=== PATIENT | female | born 1985 | race African-American/Black ===

== ENCOUNTER 2021-09-14 08:01 | Outpatient (REF) | payer BC, SELFPAY ==
[2021-09-14 08:14] LABS: MANUAL DIFF FLAG NO
[2021-09-14 08:39] LABS: Basophils Percent Auto 0.8 % (0-2); Eosinophils Absolute Auto 0.4 X10*3/uL (0.0-0.4); Eosinophils Percent Auto 6.7 % (0-4); Hematocrit 40.2 % (37.0-47.0); Imm Gran Abs Auto 0.01 X10*3/uL (0.00-0.03); Imm Gran Pct Auto 0.2 % (0.0-0.4); Lymphocytes Absolute Auto 1.5 X10*3/uL (1.2-4.9); Lymphocytes Percent Auto 28.4 % (20-40); Mean Corpuscular HGB Conc 32.3 g/dl (31.0-35.0); Mean Corpuscular Volume 83.4 fL (80.0-98.0); Mean Platelet Volume 10.3 fL (9.4-12.3); Monocytes Absolute Auto 0.5 X10*3/uL (0.1-1.2); Monocytes Percent Auto 10.1 % (2-11); Neutrophils Absolute Auto 2.8 x10*3/uL (2.0-8.3); Neutrophils Percent Auto 53.8 % (45-73); Platelet Count 400 X10*3/uL (160-400); Red Blood Count 4.82 X10*6/uL (4.20-5.50); Red Cell Distribution Width 13.4 % (11.0-16.0); White Blood Count 5.2 X10*3/uL (4.8-10.8)
[2021-09-14 09:24] LABS: Alanine Aminotransferase 20 U/L (0-31); Albumin Level 4.3 g/dL (3.5-5.0); Alkaline Phosphatase 45 U/L (39-117); Anion Gap 11 (12-20); Aspartate Amino Transferase 23 U/L (5-31); Bilirubin Total 1.1 mg/dL (0.0-1.0); Blood Urea Nitrogen 8 mg/dL (9-16); Calcium 10.4 mg/dL (8.4-10.2); Carbon Dioxide 26 mmol/L (22-29); Chloride 105 mmol/L (96-108); Cholesterol 177 mg/dL; Estimated Glomerular Filt Rate > 60; Glucose Fasting 92 mg/dL (60-99); HDL Cholesterol 55 mg/dL; LDL Cholesterol Calculated 105 mg/dl; Potassium 4.2 mmol/L (3.3-5.1); Sodium 138 mmol/L (135-145); Total Protein 7.4 g/dL (6.5-8.0); Triglycerides 88 mg/dL
== END 2021-09-14 08:02 | disposition home or self-care (01) ==
LOC: HO.LAB 08:01
PROVIDERS: PCP Nurse Practitioner Family; Visit Provider Nurse Practitioner Family
DX: I10 Essential (primary) hypertension (principal); E78.00 Pure hypercholesterolemia, unspecified; Z76.89 Persons encountering health services in other specified circumstances
CPT/HCPCS: 36415; 80053; 80061; 84443; 85025

== ENCOUNTER 2024-11-23 19:38 | Emergency (ER) | payer OTHER, SELFPAY ==
--- NOTE | ~2024-11-23 | XR_ITS ---
CLINICAL HISTORY: pain Left shoulder, 3 views COMPARISON: None provided FINDINGS: No acute fracture. No dislocation. Unremarkable soft tissues. IMPRESSION: No acute findings. This document has been electronically signed by: Florin Sahu MD on 11/23/2024 21:51:41
[2024-11-23 20:15] VITALS: BP 125/77; BP 130/89; PULSE 70; PULSE 84; RESP 16; TEMP 36.6; O2SAT 98; BMI 27.4
--- NOTE | 2024-11-23 20:33 | ED_ITS ---
HPI - Extremity Problem General Chief complaint: Extremity Injury, Upper Stated complaint: L Shoulder pain Time Seen by Provider: 11/23/24 20:18 History of Present Illness HPI Narrative: Patient is a 39-year-old female was playing basketball. When she raised her hand for lay up she heard a pop in her left shoulder. Complaining of pain localized to that area. No history of the same. No fever no chills no chest pain or shortness of breath no diaphoresis. No leg swelling. Not on blood thinners. Patient from home. Related Data Previous Rx's ?Medication ?Instructions ?Recorded cetirizine 10 mg tablet 10 mg PO DAILY #90 tabs 08/17 06/08 Allergies Allergy/AdvReac Type Severity Reaction Status Date / Time shellfish derived Allergy Intermediate Swelling Verified 11/23/24 20:20 Review of Systems Review of Systems: Positive pain to the left shoulder Yes all other systems are reviewed and are negative [facility] Past Medical History Attestation statement: The following information was validated with the patient. Medical History Physical exam Surgical History No pertinent past surgical history Family History Family History Mother No problems noted. Father No problems noted. Other Mental health disorder Social History Social History Housing: House Alcohol intake: current Alcohol intake frequency: holidays/special occasions only Patient Tobacco Use Status: Never used Tobacco e-Cigarette/Vaping Use: Never Used Second Hand Smoke Exposure: No Advance Directives: No Advance Directives Information Provided: No Do you have a plan to hurt others: No Plan service: Yes Current occupational status: employed Current occupation: Construction Current occupational exposures/hazards: Yes Cognitive needs: No Hearing needs: No Vision needs: Yes (glasses) Physical Exam Vital Signs: Vital Signs: Last Vital Signs Temp 98 F 11/23/24 20:15 Pulse 70 11/23/24 20:15 Resp 16 11/23/24 20:15 BP 130/89 11/23/24 20:15 Pulse Ox 98 11/23/24 20:15 O2 Del Method Room Air 11/23/24 20:15 BMI result Body Mass Index 27.4 Appearance: Alert. Oriented X3. No acute distress. Eyes: Pupils equal, round and reactive to light. ENT: Pharynx normal. Neck: Normal inspection. Neck supple. No lymph nodes noted. No crepitus CVS: Normal heart rate and rhythm. Pulses normal. Normal S1 and S2 Respiratory: No respiratory distress. Breath sounds normal. No Wheezing. No rales Abdomen: Soft and nontender. No rigidity. No distention. good BS x4 Skin: Skin warm and dry. Normal skin color. Normal skin turgor. Extremities: Left upper extremity There is good sensation over the axillary median radial and ulnar nerves. Patient had limited range of motion of the shoulder good range of motion of the elbow. Good movement of the wrist. There is no anatomical snuffbox tenderness. There is good opposition of the thumb. There is good movement of the digits. Capillary refill less than 2 seconds. Skin intact Neuro: Oriented X 3. No motor deficit. No sensory deficit. Moving all extermities. No slurred speech Medications Administered Discontinued Medications Generic Name Dose Route Start Last Admin Trade Name Wilfridoq PRN Reason Stop Dose Admin Hydrocodone Bitart/Acetaminophen 1 tab 11/23/24 22:02 11/23/24 23:11 Hydrocodone Bit/Acetam 5/325 Tablet PO 11/23/24 22:03 1 tab ONCE ONE Administration Hydromorphone HCl 0.5 mg 11/23/24 20:30 11/23/24 20:39 Hydromorphone Hcl 0.5 Mg/0.5 Ml Syringe IVPUSH 11/23/24 20:31 0.5 mg ONCE ONE Administration Protocol Ketorolac Tromethamine 15 mg 11/23/24 20:30 11/23/24 20:36 Ketorolac Tromethamine 15 Mg/Ml Vial IVPUSH 11/23/24 20:31 15 mg ONCE ONE Administration Ondansetron HCl 4 mg 11/23/24 20:30 11/23/24 20:37 Ondansetron Hcl 4 Mg/2 Ml Vial IVPUSH 11/23/24 20:31 4 mg ONCE ONE Administration Medical Decision Making Medical Decision Making MDM Narrative: Positive pain to the left shoulder. Will get an x-ray. No history of the same. No actual trauma. Patient raised her hand for lay up then felt a pop and the pain started. No gross deformity of the shoulder noted. I doubt this is secondary to a dislocation. X-ray of the shoulder showed no acute fracture. Will discharge patient home. Likely a sprain. All rotator cuff tear. Will need follow-up Differential Diagnosis Differential Diagnoses: The differential diagnosis associated with the presentation includes Rotator cuff tear Admission/Observation Consideration of admission/observation: Escalation of care including admission/observation considered Lab Data MDM Lab Attestation statement: I reviewed the patient's lab results. Independent Interpretation I performed an independent interpretation of an: Plain X-Ray (X-ray of the shoulder grossly negative) Radiology Impression Discussion of test interpretation with radiology: I have reviewed the radiologist's reading. Social Determinants Patient?s care significantly limited by Social Determinants of Health including: Problems related to primary support group Discharge Plan Discharge Clinical Impression: Shoulder sprain Patient Disposition: Home, Self-Care Prescriptions: No Action cetirizine 10 mg tablet 10 mg PO DAILY Qty: 90 0RF Referrals: Merline Garcia NP [Primary Care Provider, Internal Medicine] - 2 days Barak Foote MD [Physician, Orthopedics] - 3 days Print Language: Kosovan
[2024-11-23] MEDS: HYDROcodone Bit/Acetam 5/325 TABLET 1 TAB PO (23:11)
[2024-11-24] MEDS: HYDROcodone Bit/Acetam 5/325 TABLET 1 TAB PO (00:43)
[2024-11-24 01:08] VITALS: BP 122/82; PULSE 70; RESP 15; TEMP 36.6; O2SAT 97
== END 2024-11-24 01:00 | disposition home or self-care (01) ==
PROVIDERS: Emergency Provider Emergency Medicine Emergency Medical Services; PCP Nurse Practitioner Family
DX: M25.512 Pain in left shoulder (principal); S43.402A Unspecified sprain of left shoulder joint, initial encounter; X50.1XXA Overexertion from prolonged static or awkward postures, initial encounter; X50.3XXA Overexertion from repetitive movements, initial encounter; Y93.9 Activity, unspecified; Y92.9 Unspecified place or not applicable; Y99.8 Other external cause status
CPT/HCPCS: 73030; 96374; 96375; 99284; J1171; J1885; J2405

== ENCOUNTER → 2024-11-23 20:21 | Outpatient (BNV) | payer OTHER, SELFPAY | PROVIDERS: Emergency Provider Emergency Medicine Emergency Medical Services; PCP Nurse Practitioner Family; Visit Provider Radiology Diagnostic Radiology | DX: M25.512 Pain in left shoulder (principal) | CPT/HCPCS: 73030 ==